=== PATIENT | male | born 1960 | race Caucasian/White ===

== ENCOUNTER 2016-10-26 21:09 | Emergency (ER) | payer OTHER ==
[2016-10-26] MEDS ORDERED: GLEEVEC400 MG PO (22:12)
[2016-10-26 22:31] LABS: BASOPHIL % 0.3 % (0-2); PLATELET COUNT 193 x10^3mcL (130-400); RED CELL DISTRIBUTION WIDTH 13.8 % (11.5-14.5)
[2016-10-26 22:48] LABS: ALKALINE PHOSPHATASE 57 U/L (46-116); ALT/SGPT 28 U/L (16-63); AMYLASE 29 U/L (25-115); AST/SGOT 22 U/L (15-37); BILIRUBIN TOTAL 0.45 mg/dL (0.20-1.00); CALCIUM 8.3 mg/dL (8.5-10.1); CARBON DIOXIDE 25.9 mmol/L (21-32); CHLORIDE SERUM 105 mmol/L (98-107); GFR1 > 60 mL/min; GLUCOSE SERUM 124 mg/dL (74-106); LIPASE 129 IU/L (73-393); SODIUM SERUM 142 mmol/L (136-145); TOTAL PROTEIN, SERUM 6.8 g/dL (6.4-8.2)
[2016-10-26 22:50] LABS: POTASSIUM SERUM 2.9 mmol/L (3.5-5.1)
[2016-10-27 00:43] VITALS: BP 127/70
== END 2016-10-27 00:43 | disposition home or self-care (01) ==
LOC: ED 21:09
PROVIDERS: Emergency Medicine
DX: K52.9 Noninfective gastroenteritis and colitis, unspecified (principal)
CPT/HCPCS: 83880; C9113; J2765; J7030

== ENCOUNTER 2018-10-05 20:20 | Emergency (ER) | payer OTHER ==
[~2018-10-05] VITALS: Ht 167.6 cm; Wt 77.6 kg
[~2018-10-05 20:20] MED LIST: GLEEVEC400 MG PO
[2018-10-05 20:33] VITALS: Ht 167.6 cm; Wt 77.6 kg
[2018-10-05 21:21] LABS: BASOPHIL % 0.3 % (0-2); PLATELET COUNT 211 x10^3mcL (130-400); RED CELL DISTRIBUTION WIDTH 13.9 % (11.5-14.5)
[2018-10-05 21:32] LABS: CALCIUM 9.2 mg/dL (8.5-10.1); CARBON DIOXIDE 31.6 mmol/L (21-32); CHLORIDE SERUM 107 mmol/L (98-107); CREATININE SERUM 0.9 mg/dL (0.7-1.3); GFR1 > 60 mL/min; GLUCOSE SERUM 100 mg/dL (74-106); SODIUM SERUM 143 mmol/L (136-145)
[2018-10-05 21:38] LABS: ALBUMIN 4.1 g/dL (3.4-5.0); ALKALINE PHOSPHATASE 63 U/L (46-116); ALT/SGPT 40 U/L (16-63); AST/SGOT 23 U/L (15-37); BILIRUBIN TOTAL 0.51 mg/dL (0.20-1.00); TOTAL PROTEIN, SERUM 7.5 g/dL (6.4-8.2)
[2018-10-05 22:09] VITALS: BP 134/89
== END 2018-10-05 22:09 | disposition home or self-care (01) ==
LOC: ED 20:20
PROVIDERS: Emergency Medicine
DX: R20.2 Paresthesia of skin (principal); M54.2 Cervicalgia; I10 Essential (primary) hypertension; M54.5 Low back pain
CPT/HCPCS: 36415; Q0092

== ENCOUNTER 2019-07-26 17:32 | Emergency (ER) | payer OTHER ==
[~2019-07-26] VITALS: Ht 162.6 cm; Wt 78.9 kg
[2019-07-26 19:10] VITALS: Ht 162.6 cm; Wt 78.9 kg
[2019-07-26 19:44] VITALS: BP 130/98
== END 2019-07-26 19:44 | disposition home or self-care (01) ==
LOC: ED 17:32
DX: J11.1 Influenza due to unidentified influenza virus with other respiratory manifestations (principal); I10 Essential (primary) hypertension

== ENCOUNTER 2020-09-14 12:57 | Emergency (ER) | payer OTHER ==
[~2020-09-14] VITALS: Ht 162.6 cm; Wt 77.1 kg
[2020-09-14 13:08] VITALS: Ht 162.6 cm; Wt 77.1 kg
[2020-09-14 14:20] LABS: microscopic required? NO
[2020-09-14 14:47] LABS: UA SPECIFIC GRAVITY 1.025 (1.005-1.035); urine erythrocyte NEGATIVE (NEGATIVE)
[2020-09-14 14:47] LABS: BASOPHIL % 0.4 % (0.2-1.5); PLATELET COUNT 209 x10^3mcL (152-348); RED CELL DISTRIBUTION WIDTH 13.4 % (12.1-16.2)
[2020-09-14 14:58] LABS: CHLORIDE SERUM 105 mmol/L (98-107); GFR1 > 60 mL/min; GLUCOSE SERUM 93 mg/dL (74-106); SODIUM SERUM 140 mmol/L (136-145)
[2020-09-14 15:02] LABS: ALBUMIN 4.1 g/dL (3.4-5.0); ALKALINE PHOSPHATASE 63 U/L (46-116); ALT/SGPT 38 U/L (16-63); AST/SGOT 23 U/L (15-37); BILIRUBIN TOTAL 0.7 mg/dL (0.20-1.00); CALCIUM 9.4 mg/dL (8.5-10.1); CARBON DIOXIDE 29.1 mmol/L (21-32); CREATININE SERUM 0.8 mg/dL (0.7-1.3); LIPASE 112 IU/L (73-393); TOTAL PROTEIN, SERUM 7.4 g/dL (6.4-8.2)
[2020-09-14 16:02] VITALS: BP 132/74
== END 2020-09-14 15:30 | disposition home or self-care (01) ==
LOC: ED 12:57
PROVIDERS: Emergency Medicine
DX: R10.30 Lower abdominal pain, unspecified (principal); R14.0 Abdominal distension (gaseous); I10 Essential (primary) hypertension
CPT/HCPCS: 87491; 87591